=== PATIENT | male | born 1960 | race Caucasian/White ===

== ENCOUNTER 2020-04-01 23:38 | Inpatient (IN) ==
[2020-04-01] MEDS ORDERED: Aspirin 81 MG TAB.CHEW PO ONE (23:41)
[2020-04-02] MEDS ORDERED: *HR* Heparin 5,000 UNIT/ML VIAL IVP ONE
[2020-04-02] MEDS ORDERED: *HR* FentaNYL (PF) 100 MCG/2 ML VIAL IVP ONE
[2020-04-02] MEDS ORDERED: *HR* Heparin 5,000 UNIT/ML VIAL IVP PRN ×2
[2020-04-02 00:22] LABS: Heparin anti-factor XA UFH < 0.04 IU/mL (0.30-0.70); Prothrombin Time 11.7 Seconds (9.4-12.1)
[2020-04-02 00:25] LABS: Activated Partial Thrombo Time 24.8 Seconds (26.0-36.0)
[2020-04-02 00:32] LABS: Basophils # 0.1 K/mcL (0.0-0.2); Basophils % 0.5 %; Eosinophils # 0.1 K/mcL (0.0-0.6); Eosinophils % 0.6 %; Hematocrit 37.5 % (37.5-50.1); Hemoglobin 12.6 g/dL (12.9-16.9); Immature Granulocytes % 1.4 % (0-4); Immature Platelets 9.7 % (1.1-6.1); Lymphocytes # 1.6 K/mcL (0.6-4.6); Lymphocytes % 12.8 %; Mean Corpuscular HGB Conc 33.6 g/dL (31.6-35.5); Mean Corpuscular Hemoglobin 32.4 pg (28.0-33.3); Mean Corpuscular Volume 96.4 fL (83.0-100.0); Mean Platelet Volume 11.6 fL (9.4-12.4); Monocytes # 1.1 K/mcL (0.0-1.3); Monocytes % 8.6 %; Neutrophils # 9.7 K/mcL (1.6-8.9); Platelet Count 120 K/mcL (140-400); Red Blood Count 3.89 M/mcL (4.19-5.50); Red Cell Distribution Width 11.9 % (11.5-14.5); Segmented Neutrophils % 76.1 %; White Blood Count 12.8 K/mcL (4.3-11.1)
[2020-04-02 00:39] LABS: Alanine Aminotransferase 16 Units/L (7-52); Albumin 4.1 g/dL (3.5-5.7); Albumin/Globulin Ratio 1.8 (1.1-2.2); Alkaline Phosphatase 65 Units/L (34-104); Aspartate Amino Transferase 15 Units/L (13-39); BUN/Creatinine Ratio 8 (6-26); Bilirubin,Direct 0.1 mg/dL (0.0-0.2); Bilirubin,Indirect 0.4 mg/dL (0.0-1.0); Bilirubin,Total 0.5 mg/dL (0.3-1.0); Blood Urea Nitrogen 10 mg/dL (8-23); Calcium 9.1 mg/dL (8.6-10.3); Carbon Dioxide 26 mEq/L (23-29); Chloride 101 mEq/L (98-107); Globulin 2.3 g/dL (2.4-3.5); Glucose 163 mg/dL (70-105); Lipase 32 Units/L (11-82); Osmolality,Calculated 285 (280-300); Potassium 3.3 mEq/L (3.5-5.1); Sodium 136 mEq/L (136-145); Total Protein 6.4 g/dL (6.4-8.9); Troponin I < 0.03 ng/mL (< 0.04); eGFR For African Americans > 60 (> 60); eGFR For Non-African Americans 59 (> 60)
[2020-04-02] MEDS: Heparin 25,000UNIT/250ML 1/2NS 25,000 UNIT/250 ML IV.SOLN IVC SCH (00:48)
[2020-04-02 02:16] LABS: Adenovirus Not Detected (Not Detect); Bordetella Pertussis Not Detected (Not Detect); Chlamydophila pneumoniae Not Detected (Not Detect); Coronavirus 229E Not Detected (Not Detect); Coronavirus HKU1 Not Detected (Not Detect); Coronavirus NL63 Not Detected (Not Detect); Coronavirus OC43 Not Detected (Not Detect); Human Metapneumovirus Not Detected (Not Detect); Human Rhinovirus/Enterovirus Not Detected (Not Detect); Influenza A Subtype 2009 H1 Not Detected (Not Detect); Influenza B Not Detected (Not Detect); Mycoplasma pneumoniae Not Detected (Not Detect); Parainfluenza Virus 1 Not Detected (Not Detect); Parainfluenza Virus 2 Not Detected (Not Detect); Parainfluenza Virus 3 Not Detected (Not Detect); Parainfluenza Virus 4 Not Detected (Not Detect); Respiratory Syncytial Virus Not Detected (Not Detect); SARS-CoV-2 Not Detected (Not Detect)
[2020-04-02] MEDS ORDERED: Potassium Chloride Elixir 20 MEQ/15 ML UDC PO ONE (02:44)
[2020-04-02] MEDS ORDERED: Perflutren Lipid Microsphere 1.3 ML in 0.9 % Sodium Chloride 8.7 ML IVP PRN (02:47)
[2020-04-02] MEDS ORDERED: D5% in Water 1,000 ML IVC PRN (02:50)
[2020-04-02] MEDS ORDERED: *HR* Dextrose 50 % in Water (Vial) 50 ML VIAL IVP PRN (02:50)
[2020-04-02] MEDS ORDERED: Dextrose Gel 15 GM/37.5 ML TUBE PO PRN ×2 (02:50)
[2020-04-02] MEDS ORDERED: Naloxone 0.4 MG/ML INJ IVP PRN (02:51)
[2020-04-02] MEDS ORDERED: Acetaminophen 325 MG TABLET PO PRN (02:51)
[2020-04-02] MEDS ORDERED: Ondansetron 4 MG/2 ML VIAL IVP PRN (02:51)
[2020-04-02] MEDS ORDERED: *HR* HYDROcodone/Acet 5/325 mg TABLET PO PRN (02:51)
[2020-04-02] MEDS: Insulin LISPRO 300 UNITS/3 ML VIAL SQ SCH ×3 (06:32→17:34)
[2020-04-02] MEDS ORDERED: Regadenoson 0.4 MG/5 ML SYRINGE IVP ONE (07:07)
[2020-04-02 07:24] LABS: Chol/HDL Ratio 1.9 (0-4.9); Magnesium 1.7 mg/dL (1.6-2.6); Phosphorous 2.8 mg/dL (2.7-4.5); Potassium 4.1 mEq/L (3.5-5.1)
[2020-04-02] MEDS: Aspirin Enteric Coated 81 MG Tablet PO SCH (10:52)
[2020-04-03] MEDS: Insulin LISPRO 300 UNITS/3 ML VIAL SQ SCH ×4 (00:22→17:56)
[2020-04-03 00:43] LABS: Hematocrit 37.6 % (37.5-50.1); Mean Platelet Volume 11.6 fL (9.4-12.4); Red Cell Distribution Width 12.1 % (11.5-14.5)
[2020-04-03 00:44] LABS: Hemoglobin 12.6 g/dL (12.9-16.9); Immature Platelets 9.6 % (1.1-6.1); Mean Corpuscular HGB Conc 33.5 g/dL (31.6-35.5); Mean Corpuscular Hemoglobin 32.3 pg (28.0-33.3); Mean Corpuscular Volume 96.4 fL (83.0-100.0); Red Blood Count 3.9 M/mcL (4.19-5.50); White Blood Count 9.5 K/mcL (4.3-11.1)
[2020-04-03 00:59] LABS: BUN/Creatinine Ratio 13 (6-26); Blood Urea Nitrogen 13 mg/dL (8-23); Calcium 8.9 mg/dL (8.6-10.3); Carbon Dioxide 22 mEq/L (23-29); Chloride 108 mEq/L (98-107); Glucose 134 mg/dL (70-105); Osmolality,Calculated 286 (280-300); Potassium 3.7 mEq/L (3.5-5.1); Sodium 137 mEq/L (136-145); eGFR For African Americans > 60 (> 60); eGFR For Non-African Americans > 60 (> 60)
[2020-04-03] MEDS: Heparin 25,000UNIT/250ML 1/2NS 25,000 UNIT/250 ML IV.SOLN IVC SCH (07:50)
[2020-04-03] MEDS: Aspirin Enteric Coated 81 MG Tablet PO SCH (08:26)
[2020-04-03] MEDS ORDERED: 0.9 % Sodium Chloride 2,000 ML ONE (08:43)
[2020-04-03] MEDS ORDERED: *HR* Midazolam HCl 2 MG/2 ML VIAL ONE (08:43)
[2020-04-03] MEDS ORDERED: *HR* FentaNYL (PF) 100 MCG/2 ML VIAL ONE (08:43)
[2020-04-03] MEDS ORDERED: Nitroglycerin 1,000 MCG/10 ML VIAL IV ONE (08:44)
[2020-04-03] MEDS ORDERED: ISOVUE-370 200 ML INFUS..BTL ONE ×4 (08:44→11:18)
[2020-04-03] MEDS ORDERED: Heparin 1,000 UNITS/500 mL 500 ML ONE ×2 (08:44→10:33)
[2020-04-03] MEDS ORDERED: *HR* Heparin 10,000 UNIT/10 ML VIAL ONE (08:44)
[2020-04-03] MEDS ORDERED: 0.9 % Sodium Chloride 1,000 ML ONE (10:09)
[2020-04-03] MEDS: 0.9 % Sodium Chloride 1,000 ML IVC SCH ×2 (12:07→21:57)
[2020-04-03] MEDS ORDERED: Insulin LISPRO 300 UNITS/3 ML VIAL SQ SCH (21:00)
[2020-04-04] MEDS ORDERED: *HR* Ticagrelor 90 MG TABLET PO ONE (08:00)
[2020-04-04 08:04] VITALS: BP 146/77
[2020-04-04] MEDS: Insulin LISPRO 300 UNITS/3 ML VIAL SQ SCH (08:18)
[2020-04-04] MEDS: Aspirin Enteric Coated 81 MG Tablet PO SCH (08:18)
[2020-04-04] MEDS: 0.9 % Sodium Chloride 1,000 ML IVC SCH (08:18)
[2020-04-04] MEDS ORDERED: *HR* Ticagrelor 90 MG TABLET PO SCH (21:00)
== END 2020-04-04 11:55 | disposition home or self-care (01) | DRG 247 ==
LOC: 2ANU 23:38 → EMEROOARM 23:38 → 2ANU 04-02 02:30
PROVIDERS: ADMIT Internal Medicine; ATTEND Internal Medicine

== ENCOUNTER 2020-04-07 13:18 | Observation (INO) ==
[2020-04-07] MEDS ORDERED: Aspirin 81 MG TAB.CHEW PO ONE (13:26)
[2020-04-07] MEDS ORDERED: Nitroglycerin 0.4 MG TAB.SUBL SL PRN (13:26)
[2020-04-07] MEDS ORDERED: Ondansetron 4 MG/2 ML VIAL IVP ONE (13:26)
[2020-04-07] MEDS ORDERED: Nitroglycerin 0.4 MG TAB.SUBL SL ONE (13:29)
[2020-04-07] MEDS ORDERED: *HR* FentaNYL (PF) 100 MCG/2 ML VIAL IVP ONE (13:36)
[2020-04-07 13:55] LABS: Basophils % 0.2 %; Eosinophils # 0.1 K/mcL (0.0-0.6); Eosinophils % 0.5 %; Hematocrit 40.4 % (37.5-50.1); Hemoglobin 13.5 g/dL (12.9-16.9); Immature Granulocytes % 0.3 % (0-4); Lymphocytes # 0.9 K/mcL (0.6-4.6); Lymphocytes % 7.7 %; Mean Corpuscular HGB Conc 33.4 g/dL (31.6-35.5); Mean Corpuscular Hemoglobin 32.2 pg (28.0-33.3); Mean Corpuscular Volume 96.4 fL (83.0-100.0); Mean Platelet Volume 11.1 fL (9.4-12.4); Monocytes # 1.1 K/mcL (0.0-1.3); Monocytes % 9.1 %; Platelet Count 162 K/mcL (140-400); Red Blood Count 4.19 M/mcL (4.19-5.50); Red Cell Distribution Width 11.8 % (11.5-14.5); Segmented Neutrophils % 82.2 %; White Blood Count 12.1 K/mcL (4.3-11.1)
[2020-04-07 13:58] LABS: INR 1.1; Prothrombin Time 12.5 Seconds (9.4-12.1)
[2020-04-07 14:01] LABS: Activated Partial Thrombo Time 28.4 Seconds (26.0-36.0)
[2020-04-07 14:19] LABS: BUN/Creatinine Ratio 9 (6-26); Blood Urea Nitrogen 9 mg/dL (8-23); Calcium 9.2 mg/dL (8.6-10.3); Carbon Dioxide 22 mEq/L (23-29); Chloride 104 mEq/L (98-107); Glucose 212 mg/dL (70-105); Osmolality,Calculated 287 (280-300); Potassium 4.1 mEq/L (3.5-5.1); Sodium 136 mEq/L (136-145); Troponin I 0.04 ng/mL (< 0.04); eGFR For African Americans > 60 (> 60); eGFR For Non-African Americans > 60 (> 60)
[2020-04-07] MEDS ORDERED: Naloxone 0.4 MG/ML INJ IVP PRN (16:16)
[2020-04-07] MEDS ORDERED: Ondansetron ODT 4 MG TAB.RAPDIS SL PRN (16:16)
[2020-04-07] MEDS ORDERED: *HR* Dextrose 50 % in Water (Vial) 50 ML VIAL IVP PRN (17:17)
[2020-04-07] MEDS ORDERED: Dextrose Gel 15 GM/37.5 ML TUBE PO PRN ×2 (17:17)
[2020-04-07] MEDS ORDERED: D5% in Water 1,000 ML IVC PRN (17:17)
[2020-04-07] MEDS: *HR* Heparin 5,000 UNIT/ML VIAL SQ SCH ×2 (17:54→20:31)
[2020-04-07] MEDS: Insulin LISPRO 300 UNITS/3 ML VIAL SQ SCH (17:54)
[2020-04-07] MEDS: Isosorbide MONOnitrate (24 HR) 30 MG TAB.ER.24H PO SCH (17:54)
[2020-04-08] MEDS: *HR* Heparin 5,000 UNIT/ML VIAL SQ SCH (04:54)
[2020-04-08 06:33] LABS: Basophils % 0.4 %; Eosinophils # 0.1 K/mcL (0.0-0.6); Eosinophils % 0.6 %; Hematocrit 34.7 % (37.5-50.1); Immature Granulocytes % 0.2 % (0-4); Lymphocytes # 1.8 K/mcL (0.6-4.6); Lymphocytes % 18.8 %; Mean Corpuscular HGB Conc 33.7 g/dL (31.6-35.5); Mean Corpuscular Hemoglobin 32.7 pg (28.0-33.3); Mean Corpuscular Volume 96.9 fL (83.0-100.0); Mean Platelet Volume 10.9 fL (9.4-12.4); Monocytes # 1.2 K/mcL (0.0-1.3); Monocytes % 12.2 %; Neutrophils # 6.5 K/mcL (1.6-8.9); Platelet Count 138 K/mcL (140-400); Red Blood Count 3.58 M/mcL (4.19-5.50); Red Cell Distribution Width 11.8 % (11.5-14.5); Segmented Neutrophils % 67.8 %; White Blood Count 9.7 K/mcL (4.3-11.1)
[2020-04-08 06:35] LABS: Hemoglobin 11.7 g/dL (12.9-16.9)
[2020-04-08 06:51] LABS: BUN/Creatinine Ratio 10 (6-26); Blood Urea Nitrogen 10 mg/dL (8-23); Calcium 8.8 mg/dL (8.6-10.3); Carbon Dioxide 24 mEq/L (23-29); Chloride 105 mEq/L (98-107); Glucose 154 mg/dL (70-105); Osmolality,Calculated 284 (280-300); Potassium 3.7 mEq/L (3.5-5.1); Sodium 136 mEq/L (136-145); eGFR For African Americans > 60 (> 60); eGFR For Non-African Americans > 60 (> 60)
[2020-04-08 07:07] VITALS: BP 100/66
[2020-04-08] MEDS: Isosorbide MONOnitrate (24 HR) 30 MG TAB.ER.24H PO SCH (08:27)
[2020-04-08] MEDS: Insulin LISPRO 300 UNITS/3 ML VIAL SQ SCH (08:28)
== END 2020-04-08 11:21 | disposition home or self-care (01) ==
LOC: EMEROOARM 13:18 → 3BNU 13:18 → SUATTDRO 15:34 → 3BNU 16:54
PROVIDERS: ADMIT Internal Medicine; ATTEND Internal Medicine